=== PATIENT | female | born 1960 | race Caucasian/White ===

== ENCOUNTER → 2020-01-07 07:57 | Outpatient (CLI) | payer OTHER, SELFPAY ==
--- NOTE | 2020-01-07 | DI.ECHO.S_ITS ---
[facility] +---------+ : : [address] [place] : : : : [id number] : : : : Phone: [phone]+ Echocardiogram Report + + :Name: FLOR CLEMENTE Study Date: 01/07/2020 Height: 64 in : :[facility] Weight: 110 lb : : Gender: Female BSA: 1.5 m2 : :: 1960 Age: 59 yrs BP: 110/78 mmHg: :Reason For Study: Secondary Malignant Neoplasm of Bone : : Performed By: Renata Correa : :Referring: UNSPECIFIED : + + Interpretation Summary The left ventricle is normal in size and wall thickness. Left ventricular systolic function is normal. The right ventricle is normal in size and function. The right ventricular systolic pressure is estimated to be at least 25 mmHg based on an estimated right atrial pressure of 3 mm Hg. Both atria are normal in size. -Structurally normal heart by echocardiogram. -Normal LV strain. -Incidentally noted are left pleural effusion and ascites. -No prior echo for comparison. -Results were communicated to Dr. Durant. Procedure: A two-dimensional transthoracic echocardiogram with color flow and Doppler was performed. The study quality was technically adequate. There is no prior echocardiogram noted for this patient. Ordering Doctor: Dawson Durant . The patient was in normal sinus rhythm during the exam. Left Ventricle: The left ventricle is normal in size and wall thickness. The ejection fraction is estimated to be 55-60%. Left ventricular global longitudinal strain average is -20.2%%. Left ventricular systolic function is normal. Left ventricular wall motion is normal. Diastolic parameters suggest probable normal left ventricular diastolic function and normal filling pressures. Right Ventricle: The right ventricle is normal in size and function. Atria: Both atria are normal in size. There is no Doppler evidence for an interatrial shunt. Mitral Valve: The mitral valve is normal in structure and function. There is no mitral stenosis. There is mild mitral regurgitation. Aortic Valve: The aortic valve is trileaflet. The aortic valve opens well. There is no aortic valve stenosis. No aortic regurgitation is present. Tricuspid Valve: The tricuspid valve is normal in structure and function. There is trace tricuspid regurgitation. The right ventricular systolic pressure is estimated to be at least 25 mmHg based on an estimated right atrial pressure of 3 mm Hg. Pulmonic Valve: The pulmonic valve is normal in structure and function. There is mild pulmonic regurgitation. Great Vessels: The aortic root is normal size. The dimensions of the ascending aorta are normal. The IVC is of normal diameter and collapses greater than 50% with a sniff. This suggests a low right atrial pressure of 3 mm Hg. Pericardium/ Pleura There is no pericardial effusion. There is a moderate left-sided pleural effusion. Ascites noted. MMode/2D Measurements & Calculations LVIDd: 4.6 cm LVOT diam: 1.9 cm LVIDs: 2.9 cm Ao root diam: 2.9 cm FS: 36.0 % asc Aorta Diam: 3.2 cm EPSS: 0.53 cm Ao Arch Diam (Prox Trans): 2.5 cm IVSd: 0.65 cm LVPWd: 0.76 cm LV aldrich. diameter/BSA (cm/m^2): 3.0 LV sys. diameter/BSA (cm/m^2): 1.9 LA A2 area: 17.8 cm2 RA long axis: 3.7 cm LA A4 area: 13.2 cm2 RA area: 9.2 cm2 LA length (vol): 4.7 cm RA vol: 19.2 ml LA vol: 42.5 ml RA : 12.6 ml/m2 LA vol index: 28.0 ml/m2 IVC diam: 1.1 cm RVD1 (basal): 2.8 cm TAPSE: 2.0 cm Doppler Measurements & Calculations Ao V2 max: 123.1 cm/sec LVOT Max Janes: 107.0 cm/sec Ao V2 mean: 85.6 cm/sec LV V1 max P.6 mmHg Ao max P.1 mmHg LV V1 VTI: 20.8 cm Ao mean P.3 mmHg KELLY(I,D): 2.6 cm2 Ao V2 VTI: 23.5 cm KELLY(V,D): 2.6 cm2 sev ratio: 0.89 KELLY indexed to BSA (cm^2/m^2): 1.7 MV E max janes: 70.6 cm/sec TR max janes: 234.2 cm/sec MV A max janes: 54.9 cm/sec TR max P.9 mmHg MV E/A: 1.3 PA V2 max: 65.5 cm/sec Med Peak E' Janes: 7.7 cm/sec PA V2 mean: 44.1 cm/sec E/E' med: 9.2 PA mean P.90 mmHg Lat Peak E' Janes: 10.0 cm/sec E/E' lat: 7.0 E/e' average: 8.1 MV dec time: 0.21 sec SV(LVOT): 61.4 ml Electronically signed by: Chago Oliveira M.D. on Reading Physician:01/08/2020 11:53 AM
--- NOTE | 2020-01-07 | DI.NM.S_ITS ---
PROCEDURE: NM BONE SCAN WHOLE BODY RADIOPHARMACEUTICAL: 21.1 mCi Tc-99m MDP IV. INDICATIONS: Secondary malignant neoplasm of bone TECHNIQUE: Delayed whole-body scintigrams were obtained approximately 3-4 hours after intravenous injection of radiotracer. Anterior and posterior views were acquired from vertex to feet. Additional left and right oblique views of the chest/abdomen were obtained. COMPARISON: Outside Film, CT, CT ABDOMEN PELVIS WITHOUT CONTRAST, 11/15/2019, 14:13. 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 The current nuclear medicine bone scan study shows abnormal isotope deposition bilaterally through the axial and appendicular skeleton most convincingly demonstrated along the ribs bilaterally and within the pelvis bilaterally where abnormal elevated isotope deposition is present. Little isotope excretion into the collecting system of the kidneys, hydronephrotic bilaterally greater on the right than the left, is present indicating SuperScan. IMPRESSION: Generalized osseous metastatic disease, extensive, resulting in a nuclear medicine finding termed SuperScan with the large majority of isotope being deposited within the osseous metastatic disease leaving very little for urinary tract excretion. Bilateral hydronephrosis, right greater than left. No pathologic fracture is found. Please note that the CT scan from 11/15/19 also shows extensive and generalized osseous metastatic disease with an osteoblastic micronodular pattern. Dictated by: Ron Faith M.D. on 01/07/2020 at 14:53 Approved by: Ron Faith M.D. on 01/07/2020 at 15:09
--- NOTE | 2020-01-07 14:08 | DI.CT.S_ITS ---
PROCEDURE: CT CHEST ABD PEL WO CON INDICATIONS: Secondary malignant neoplasm of bone TECHNIQUE: After the administration of oral contrast, 5 mm thick sections acquired from the lung apices to the symphysis pubis. 5 mm thick coronal and sagittal reformats acquired, with additional 7 mm coronal MIP reformats through the lungs. For radiation dose reduction, the following was used: automated exposure control, adjustment of mA and/or kV according to patient size. COMPARISON: Outside Film, CT, CT ABDOMEN PELVIS WITHOUT CONTRAST, 11/15/2019, 14:13. [facility], CR, XR RETROGRADE UROGRAPHY, 11/20/2019, 13:40. [facility], [place], NM BONE SCAN WHOLE BODY, 01/07/2020, 13:34. FINDINGS: Image quality: Limited by absence of intravenous contrast. Oral contrast was administered.. CHEST: Lungs and pleura: No acute pulmonary opacities but there is what appears to be atelectasis associated with a significantly increased left pleural effusion previously present. No right-sided pleural effusions or pneumothorax bilaterally. Central and peripheral airways are patent are normal in caliber. Mediastinum: Heart size is normal. No pericardial effusion. No mediastinal adenopathy by CT size criteria. Thoracic aorta and central pulmonary arteries are normal in size. Esophagus is normal in caliber. No hiatal hernia. Chest wall: No axillary or supraclavicular adenopathy by size criteria. Several left hilar calcified lymph nodes are noted, chronic in appearance. Thyroid gland is not well-seen by this noncontrast technique but appears normal where well visualized. A Port-A-Cath from a left-sided approach extends across the midline into the atrial caval junction. ABDOMEN: Solid organs: Liver is normal in size. Gallbladder appears to have been previously resected. Pancreas is normal in contours. Spleen is normal in size. No adrenal nodules. Both kidneys are normal in size, without nephrolithiasis but show symmetric hydronephrosis that is moderately severe, having progressed on the left, and extending from the abdomen into the pelvis. The peritoneal surfaces show a slight nodular pattern indicative of likelihood of peritoneal carcinomatosis. Bilateral ureteral stents are in place, crossing from the bladder lumen and into the renal pelvis bilaterally. Peritoneum and bowel: Small and large bowel loops are normal in caliber and wall thickness. No free air. There has been an interval increase in the ascites previously present, now large in quantity Nodes and vessels: No retroperitoneal or mesenteric adenopathy by size criteria. Aorta and inferior vena cava are normal in size. Miscellaneous: No ventral hernias. PELVIS: Genitourinary: Bladder wall thickness is normal. Large lower pelvic mass lesions previously identified impinge on the upper border of the bladder, and displace bowel loops from the lower third of the pelvis cephalad. Miscellaneous: No inguinal hernias or adenopathy. Bones: All osseous structures visualized show a micronodular osteoblastic metastatic disease pattern, also present on the prior CT scanning, and this is most convincingly demonstrated along the spine and within the pelvis.. No vertebral body compression fractures. IMPRESSION: 1. Worsening ascites. Peritoneal carcinomatosis is likely present given the ascites and large lower pelvic masses in the setting of pathology-based diagnosis of metastatic breast carcinoma. 2. Increasing left pleural effusion, with secondary left mild lung atelectasis. 3. Bilateral hydronephrosis despite placement of bilateral ureteral stents crossing normally from the renal pelvis into the bladder lumen. 4. Extensive osseous metastatic disease, micronodular and osteoblastic. No pathologic fracture found. 5. Port-A-Cath placed from a left-sided approach with tip in the atrial caval junction. Dictated by: Ron Faith M.D. on 01/07/2020 at 15:47 Approved by: Ron Faith M.D. on 01/07/2020 at 15:58
== END ==
PROVIDERS: PCP Physician Assistant Medical; Referring Provider Internal Medicine; Visit Provider Internal Medicine
DX: C50.919 Malignant neoplasm of unspecified site of unspecified female breast (principal); C79.51 Secondary malignant neoplasm of bone; C79.89 Secondary malignant neoplasm of other specified sites; J90 Pleural effusion, not elsewhere classified; J98.11 Atelectasis; I34.0 Nonrheumatic mitral (valve) insufficiency; I37.1 Nonrheumatic pulmonary valve insufficiency; R18.8 Other ascites; R19.00 Intra-abdominal and pelvic swelling, mass and lump, unspecified site; N13.30 Unspecified hydronephrosis; Z95.828 Presence of other vascular implants and grafts
CPT/HCPCS: 71250; 74176; 78306; 93306; A9503; Q9967